=== PATIENT | male | born 1985 | race Caucasian/White ===

== ENCOUNTER 2019-07-25 06:54 | Outpatient (CLI) | payer SELFPAY ==
--- NOTE | 2019-07-25 07:06 | US_ITS ---
WS: [id number] Complete ABDOMINAL ULTRASOUND HISTORY: URINARY PAIN COMPARISON: None available. Liver: 20.1 cm in length. Moderate hepatomegaly with mild hepatic steatosis. No mass or bile duct dil atation. Gallbladder: Normally distended with no gallstones, wall thickening or pericholecystic fluid. Gallbladder wall thickness: mm. Pancreas: Poorly visualized. CBD: 0.3 mm. Right kidney: 10.2 cm x 3.7 cm x 3.9 cm. No mass, cortical thickening or hydronephrosis. Left kidney: 11.5 cm x 4.7 cm x 5.4 cm. No mass, cortical thickening or hydronephrosis. Spleen: Normal size spleen. Spleen measures 10.7 cm in length. Abdominal aorta and IVC are within normal limits. No ascites. US/US abdomen complete* [id number] IMPRESSION: 1. Normal gallbladder. 2. Moderate hepatomegaly. 3. No renal obstruction.
[2019-07-25 07:29] LABS: Protein Urine Neg (Negative); Urine Appearance Clear (CLEAR); Urine Color Yellow (Yellow); pH Urine 7 (5-7)
[2019-07-25 07:30] LABS: Bilirubin Urine Neg (NEGATIVE); Blood Urine Neg (Negative); Glucose Urine UA Norm (Normal); Ketones Urine Negative (Negative); Leukocyte Esterase Urine Negative (Negative); Nitrate Urine Negative (Negative); Urobilinogen Urine Norm (Negative)
[2019-07-25 07:37] LABS: Add Urine Culture? No; Bacteria Urine 1+; Squamous Epithelial Cell Urine 0-4 (0-5)
== END 2019-07-25 06:55 | disposition home or self-care (01) ==
LOC: RAD 07:00
PROVIDERS: PCP Registered Nurse; Visit Provider Registered Nurse
DX: R30.9 Painful micturition, unspecified (principal); R39.198 Other difficulties with micturition; R16.0 Hepatomegaly, not elsewhere classified; Z87.448 Personal history of other diseases of urinary system
CPT/HCPCS: 76700; 81001

== ENCOUNTER 2020-11-17 15:38 | Emergency (ER) | payer SELFPAY ==
[2020-11-17 15:43] VITALS: BP 155/101; PULSE 84; RESP 16; TEMP 36.8; O2SAT 96
--- NOTE | 2020-11-17 15:51 | ED_ITS ---
HPI - Skin/Abscess/Foreign Bdy General: Chief complaint: Skin/Abscess/Foreign Body Stated complaint: rash on face Time Seen by Provider: 11/17/20 15:49 Source: patient Mode of arrival: ambulatory Limitations: no limitations History of Present Illness: HPI narrative: Patient is a 35-year-old male who presents to ED today with possible poison krystina to his face and bilateral forearm s. Patient states he initially began noticing the rash a few days ago but it has since spread. He describes it as pruritic and burning. He has had poison krystina previously and states the rash feels similar. He is not having any visual changes. No systemic symptoms. No other complaints at this time. MD complaint: rash Onset (ago): day(s) Tetanus up to date: yes Location: face, LUE and RUE Severity: mild Quality: burning and pruritic Relieving factors: topical medication Exacerbating factors: none Context: none Associated symptoms: Reports itching; Deny chills, fever(s), nausea or vomiting Treatments prior to arrival: OTC topical medication Review of Systems Const: Denies: fever(s), chills, body aches, fatigue or malaise Eyes: Denies: change in vision, blurry vision, photophobia, eye discharge, floaters or seeing flashes ENMT: Denies: throat pain or odynophagia Card: Denies: chest pain Resp: Denies: dyspnea GI: Denies: nausea or vomiting Musc: Denies: neck pain, back pain or joint pain Skin/Breast: Reports: rash and pruritus Neuro: Denies: headache(s), numbness in extremities, weakness in extremities or sensory changes [facility] ED PFSH: Surgical History S/P surgical removal of pilonidal cyst Family History Mother No problems noted. Father Stroke CAD (coronary artery disease) Social History (Updated 11/17/20 @ 15:47 by Keshawn Salazar RN) Smoking and tobacco status: current every day smoker cigarettes Packs smoked per day: 1.5 Alcohol intake: current Alcohol intake frequency: 0-2 Drinks per Day Substance/Drug Use: current Substance/Drug use frequency: daily Substance/Drug use type: Marijuana Marital status: Single Current occupational status: employed History of recent travel: No Physical Exam Const: COMMON NORMALS: no acute distress, average body habitus, patient oriented x3, no limitations, healthy appearing, alert and well nourished GENERAL APPEARANCE: cooperative ORIENTATION/CONSCIOUSNESS: Yes awake, Yes oriented to person, Yes oriented to place and Yes oriented to time HENMT: COMMON NORMALS: normocephalic and atraumatic HEAD & SCALP: normocephalic and atraumatic FACE & SINUS: other (see below) OTHER: patient has OTC anti-itch lotion/calamine lotion applied to most of his face making rash assessment fairly difficult; some of this was removed and there were some areas w/o topical treatment on them to assess but rash is erytematous and papular; no vesicular formation at this time or wheeping Eye: GENERAL EYE: appearance normal, both eyes and all related structures Neck/C-Spine: COMMON NORMALS: no lymphadenopathy Extremity: NARRATIVE EXTREMITY EXAM: a few scattered lesions to bilateral volar forearms Neuro: COMMON NORMALS: patient oriented x3 SENSORIUM/ORIENTATION: Yes alert, Yes oriented to person, Yes oriented to place and Yes oriented to time Skin: NARRATIVE SKIN EXAM: normal skin exam unless documented elsewhere Course Vital Signs: Vital signs: Vital Signs Temperature 98.3 F 11/17/20 16:25 Pulse Rate 84 11/17/20 15:43 Respiratory Rate 16 11/17/20 16:25 Blood Pressure 155/101 11/17/20 15:43 Pulse Oximetry 96 11/17/20 16:25 MDM - Skin/Abscess/Foreign Bdy MDM Narrative: Medical decision making narrative: Will treat with extended and short acting IM steroids. Recommend continuing OTC therapies. Discharge Plan Discharge Patient Disposition: Home Clinical Impression: Allergic dermatitis due to poison krystina Condition: Stable Prescriptions: No Action lubricants Gel 1 each TOPICAL ONCE Qty: 1 RF: 0 No Known Home Medications RF: 0 Discharge Orders: Discharge ED (Routine); Ordered 11/17/20 Ordered By: Blanca Yan Patient Instructions: Poison Krystina (ED) Coding Level of Care Code ED Rn Diabetes for Stephanie Rod
[2020-11-17] MEDS: triamcinolone 40 mg/mL SDV IM (16:15)
[2020-11-17] MEDS: hydrocortisone 100 mg/2 mL SDV 75 MG IM (16:15)
[2020-11-17 16:25] VITALS: RESP 16; TEMP 36.8; O2SAT 96
== END 2020-11-17 16:25 | disposition home or self-care (01) ==
PROVIDERS: Emergency Provider Physician Assistant
DX: L23.7 Allergic contact dermatitis due to plants, except food (principal); F17.210 Nicotine dependence, cigarettes, uncomplicated
CPT/HCPCS: 96372; 99283; J1720; J3301